=== PATIENT | male | born 1990 | race Two or more races ===

== ENCOUNTER 2019-03-31 17:05 | Emergency (ER) | payer MEDICAID ==
[~2019-03-31] VITALS: Ht 175.3 cm; Wt 70.3 kg
[2019-03-31] MEDS ORDERED: ONDANSETRON HCL/PF 4 MG/2 ML VIAL IVP ONE (20:00)
[2019-03-31] MEDS ORDERED: IV NS 0.9% 1,000 ML BAG IV ONE (20:00)
[2019-03-31 20:20] LABS: BASOPHILS # (AUTO) 0.1 /CMM (0.0-0.2); BASOPHILS % (AUTO) 0.8 % (0.0-2.0); EOSINOPHILS % (AUTO) 2.1 % (0.0-6.0); HEMATOCRIT 44 % (39-51); HEMOGLOBIN 14.7 g/dL (13.5-17.5); LYMPHOCYTES # (AUTO) 2.8 /CMM (0.8-4.8); LYMPHOCYTES % (AUTO) 25.5 % (20.0-44.0); MEAN CORPUSCULAR HGB CONC 33 g/dl (31.0-36.0); MEAN CORPUSCULAR VOLUME 94 fL (80-96); MONOCYTES # (AUTO) 0.7 /CMM (0.1-1.30); MONOCYTES % (AUTO) 6.2 % (2.0-12.0); NEUTROPHILS # (AUTO) 7.2 /CMM (1.8-8.9); NEUTROPHILS % (AUTO) 65.4 % (43.0-81.0); PLATELET COUNT (AUTO) 289 /CMM (150-450); RED BLOOD CELL COUNT(AUTO) 4.71 MIL/uL (4.5-6.0)
[2019-03-31 20:27] LABS: ALANINE AMINOTRANSFERASE 12 U/L (12-78); ALBUMIN 3.9 g/dL (3.4-5.0); ALCOHOL, BLOOD < 3 mg/dL (0-0); ALKALINE PHOSPHATASE 62 U/L (46-116); ASPARTATE AMINOTRANSFERASE 11 U/L (15-37); BILIRUBIN,DIRECT 0.1 mg/dL (0.0-0.2); BILIRUBIN,TOTAL 0.3 mg/dL (0.2-1.0); CALCIUM, SERUM 9.1 mg/dL (8.5-10.1); CARBON DIOXIDE 27 mmol/L (21-32); CHLORIDE 107 mmol/L (98-107); CREATININE 0.7 mg/dL (0.6-1.3); GLUCOSE 91 mg/dL (74-106); LIPASE 138 U/L (73-393); POTASSIUM 3.7 mmol/L (3.5-5.1); SODIUM SERUM 141 mmol/L (136-145); TOTAL PROTEIN, SERUM 7.4 g/dL (6.4-8.2); UREA NITROGEN, BLOOD 7 mg/dL (7-18)
[2019-03-31 20:32] LABS: ACETAMINOPHEN 0 ug/ml (10-30); SALICYLATE 0.4 mg/dL (2.8-20.0)
[2019-03-31] MEDS ORDERED: ONDANSETRON HCL/PF 4 MG/2 ML VIAL ONE (21:36)
--- NOTE | 2019-03-31 21:43 | NUR ---
ADDENDUM: Intravenous End Time Documentation: Normal saline 1 liter (IV-WO) : start time: 2142 ; end time: 2242 : IV site:RAC # 20 Port # 1
[2019-03-31 21:50] LABS: APPEARANCE,URINE Clear (CLEAR); BILIRUBIN,URINE SMALL (NEGATIVE); BLOOD, URINE Negative Ery/uL (NEGATIVE); COLOR,URINE Yellow (YELLOW); KETONES,URINE Trace (NEGATIVE); LEUKOCYTE ESTERASE ,URINE Negative (NEGATIVE); NITRITE, URINE Negative (NEGATIVE); PH,URINE 5.5 (5.0-8.0); PROTEIN,URINE Negative (NEGATIVE); UGLUCOSE Negative (NEGATIVE); UROBILINOGEN,URINE 0.2 EU/dL (0.2)
--- NOTE | 2019-03-31 23:41 | NUR ---
SO [facility] HENDRICKSON INTAKE STATES CANNOT TAKE PT'S INSURANCE BECAUSE NOT CONTRACTED WITH [facility] INSURANCE [address] [place] [address]
--- NOTE | 2019-04-01 03:03 | NUR ---
PATIENT EVALUATED BY ART LENS INSERTER. INFORMED THAT STAFF FROM MORNING SHIFT WILL EVALUATE PATIENT BASED ON INSURANCE. AWARE
[2019-04-01] MEDS ORDERED: FAMOTIDINE (20 MG) 20 MG TABLET ONE (04:19)
[2019-04-01] MEDS ORDERED: FAMOTIDINE (20 MG) 20 MG TABLET PO ONE (04:30)
--- NOTE | 2019-04-01 04:33 | NUR ---
Patient is resting comfortably in bed with eyes closed. Easily aroused. VSS
--- NOTE | 2019-04-01 09:14 | NUR ---
BREAKFAST TRAY PROVIDED. TOLERATED PO WELL
--- NOTE | 2019-04-01 14:14 | NUR ---
PER [facility] IS ACCEPTING PT. # FOR REPORT [phone]. TRANSFER INFO TO FOLLOW
--- NOTE | 2019-04-01 14:52 | NUR ---
PATIENT IS RESTING COMFORTABLY IN BED. VSS. EASILY AROUSED.
[2019-04-01] MEDS ORDERED: LORAZEPAM 1 MG TABLET ONE (18:15)
[2019-04-01] MEDS ORDERED: LORAZEPAM 1 MG TABLET PO ONE (18:30)
--- NOTE | 2019-04-01 18:33 | NUR ---
Pt is going to [phone] to [facility], accepting psychiatrist is Dr. Kendall # for report [phone]
--- NOTE | 2019-04-01 18:41 | NUR ---
Spoke to Corin, was told to call back after 1930 to give report
--- NOTE | 2019-04-01 18:46 | NUR ---
Per [facility] eta is [phone]. Trip # [id number]
--- NOTE | 2019-04-01 19:03 | NUR ---
Patient is resting comfortably in bed. Easily aroused. VSS.
--- NOTE | 2019-04-01 20:35 | NUR ---
SPOKE TO REMY JURADO FOR REPORT
--- NOTE | 2019-04-01 20:38 | NUR ---
PATIENT RESTING COMFORTABLY. VSS.
--- NOTE | 2019-04-01 21:24 | NUR ---
[facility] CALLED, DELAYED ETA. NEW ETA [phone]
--- NOTE | 2019-04-01 21:28 | NUR ---
CALLED WOOD. UPDATED ETA
[2019-04-01 22:35] VITALS: BP 118/68
--- NOTE | 2019-04-01 22:35 | NUR ---
REPORT GIVEN TO GENARO FOR LISA
== END 2019-04-01 22:58 ==
LOC: ER 17:08
DX: R45.851 Suicidal ideations (principal); R11.2 Nausea with vomiting, unspecified; R19.7 Diarrhea, unspecified; F19.10 Other psychoactive substance abuse, uncomplicated; F32.9 Major depressive disorder, single episode, unspecified; F41.9 Anxiety disorder, unspecified; F12.10 Cannabis abuse, uncomplicated
CPT/HCPCS: 36415; 80048; 80076; 80305; 80307; 80329; 81001; 83690; 85025; 96361; 96374; 99285; G0480; J2405; J7030; 81000-TC

== ENCOUNTER 2022-01-17 22:16 | Emergency (ER) | payer MEDICAID, OTHER ==
[~2022-01-17] VITALS: Ht 170.2 cm; Wt 72.6 kg
[2022-01-17 22:38] VITALS: BP 103/68
--- NOTE | 2022-01-17 22:43 | NUR ---
DR. BRINDA CAREY AT PT'S BEDSIDE FOR EVAL
[2022-01-17] MEDS ORDERED: MAG HYDROX/AL HYDROX/SIMETH 30 ML UDC ONE (22:47)
[2022-01-17] MEDS ORDERED: FAMOTIDINE (20 MG) 20 MG TABLET ONE (22:47)
[2022-01-17] MEDS ORDERED: MAG HYDROX/AL HYDROX/SIMETH 30 ML UDC PO ONE (23:00)
[2022-01-17] MEDS ORDERED: FAMOTIDINE (20 MG) 20 MG TABLET PO ONE (23:00)
== END 2022-01-17 22:56 | disposition home or self-care (01) ==
LOC: ER 22:20
DX: E73.9 Lactose intolerance, unspecified (principal); Z60.2 Problems related to living alone